=== PATIENT | female | born 1995 | race Caucasian/White ===

== ENCOUNTER 2018-01-19 01:32 | Emergency (ER) | payer MEDICAID ==
[~2018-01-19] VITALS: Ht 160 cm; Wt 104.3 kg
[~2018-01-19 01:32] MED LIST: PRENCAP61 PO
[2018-01-19 02:42] LABS: Urine Bacteria MOD /hpf (None Seen); Urine Blood Negative /uL (Negative); Urine Mucus FEW (None Seen); Urine Specific Gravity 1.018 (1.001-1.035); Urine WBC 16 /hpf (0 - 5)
[2018-01-19 02:46] LABS: Alcohol, Urine < 3.0 mg/dL (0-5); Amphetamine Screen, Urine NEGATIVE (NEGATIVE); Barbiturate Scree,Urine NEGATIVE (NEGATIVE); Benzodiazephine Screen, Urine NEGATIVE (NEGATIVE); Cannabinoid Screen, Urine NEGATIVE (NEGATIVE); Cocaine Screen, Urine NEGATIVE (NEGATIVE); Opiate Scree,Urine NEGATIVE (NEGATIVE); Phencyclidine Screen, Urine NEGATIVE (NEGATIVE)
[2018-01-19 03:08] LABS: Nucleated Red Blood Cells % 0.1 %; White Blood Cell 11.3 10^3/uL (4.4-10.8)
[2018-01-19 03:15] LABS: Basophils # (auto) 0.1 uL; Basophils % (auto) 0.6 % (0.0-2.0); Eosinophils # (auto) 0.4 uL; Eosinophils % (auto) 3.9 % (0.0-7.0); Hematocrit 45.3 % (36.0-46.0); Lymphocytes # (auto) 4.6 uL; Lymphocytes % (auto) 40.5 % (10.0-50.0); Mean Corpuscular Hemoglobin 27.6 pg (28.0-32.0); Mean Corpuscular Volume 83.6 fL (80.0-100.0); Monocytes # (auto) 0.6 uL; Monocytes % (auto) 5.7 % (0.0-12.0); Neutrophils # (auto) 5.6 uL; Neutrophils % (auto) 49.3 % (37.0-80.0); Platelet Count (auto) 288 10^3/uL (140-450); Red Blood Cells 5.43 10^6/uL (4.0-5.20)
[2018-01-19 03:31] LABS: Albumin 3.5 g/dL (3.4-5.0); BUN/Creatinine Ratio 17.1; Calcium 8.7 mg/dL (8.5-10.1)
[2018-01-19 03:34] LABS: Bilirubin, Total 0.4 mg/dL (0.2-1.0); Total Protein 7.2 g/dL (6.4-8.2)
[2018-01-19 04:36] VITALS: BP 111/69
== END 2018-01-19 09:15 | disposition home or self-care (01) ==
LOC: ER 01:32
DX: N39.0 Urinary tract infection, site not specified (principal); E66.01 Morbid (severe) obesity due to excess calories; Z68.41 Body mass index [BMI] 40.0-44.9, adult; Z90.49 Acquired absence of other specified parts of digestive tract; Z88.1 Allergy status to other antibiotic agents
CPT/HCPCS: 36415; 74176; 80053; 80307; 81001; 82150; 83690; 85025

== ENCOUNTER 2018-09-15 01:36 | Emergency (ER) | payer MEDICAID ==
[~2018-09-15] VITALS: Ht 167.6 cm; Wt 98.4 kg
[2018-09-15 02:45] VITALS: BP 127/56
[2018-09-15 03:28] LABS: Basophils # (auto) 0.1 uL; Basophils % (auto) 0.5 % (0.0-2.0); Eosinophils # (auto) 0.3 uL; Eosinophils % (auto) 2.7 % (0.0-7.0); Hematocrit 44.1 % (36.0-46.0); Hemoglobin 14.9 g/dL (12.2-16.2); Lymphocytes # (auto) 4.1 uL; Lymphocytes % (auto) 35.7 % (10.0-50.0); Mean Corpuscular Hemoglobin 28.9 pg (28.0-32.0); Mean Corpuscular Hgb Conc. 33.8 g/dL (32.0-36.0); Mean Corpuscular Volume 85.5 fL (80.0-100.0); Monocytes # (auto) 0.6 uL; Monocytes % (auto) 4.9 % (0.0-12.0); Neutrophils # (auto) 6.5 uL; Neutrophils % (auto) 56.2 % (37.0-80.0); Platelet Count (auto) 291 10^3/uL (140-450); Red Blood Cells 5.16 10^6/uL (4.0-5.20); Red Cell Distribution Width 14.9 % (11.8-14.3); White Blood Cell 11.6 10^3/uL (4.4-10.8)
[2018-09-15 03:44] LABS: Albumin 3.5 g/dL (3.4-5.0); BUN/Creatinine Ratio 15.5; Calcium 8.8 mg/dL (8.5-10.1); Potassium 3.8 mmol/L (3.5-5.1)
[2018-09-15 03:47] LABS: Bilirubin, Total 0.5 mg/dL (0.2-1.0); Total Protein 6.9 g/dL (6.4-8.2)
[2018-09-15 03:52] LABS: Urine Bacteria MANY /hpf (None Seen); Urine Blood Negative /uL (Negative); Urine Hyaline Cast FEW /lpf (0 - 2); Urine Mucus FEW (None Seen); Urine Specific Gravity 1.013 (1.001-1.035); Urine WBC 2 /hpf (0 - 5)
== END 2018-09-15 04:59 | disposition left against medical advice (07) ==
LOC: ER 01:36
DX: O26.891 Other specified pregnancy related conditions, first trimester (principal); R10.30 Lower abdominal pain, unspecified; Z3A.01 Less than 8 weeks gestation of pregnancy; Z53.21 Procedure and treatment not carried out due to patient leaving prior to being seen by health care provider
CPT/HCPCS: 36415; 80053; 81001; 84702; 85025

== ENCOUNTER 2019-02-15 19:47 | Observation (INO) | payer MEDICAID ==
[~2019-02-15] VITALS: Ht 162.6 cm; Wt 108.0 kg
[2019-02-15 21:03] LABS: Urine Bacteria NONE SEEN /hpf (None Seen); Urine Blood Negative /uL (Negative); Urine Mucus FEW (None Seen); Urine Specific Gravity 1.028 (1.001-1.035); Urine WBC 7 /hpf (0 - 5)
[2019-02-15 21:04] LABS: Alcohol, Urine < 3.0 mg/dL (0-5); Amphetamine Screen, Urine NEGATIVE (NEGATIVE); Barbiturate Scree,Urine NEGATIVE (NEGATIVE); Benzodiazephine Screen, Urine NEGATIVE (NEGATIVE); Cannabinoid Screen, Urine NEGATIVE (NEGATIVE); Cocaine Screen, Urine NEGATIVE (NEGATIVE); Opiate Scree,Urine NEGATIVE (NEGATIVE); Phencyclidine Screen, Urine NEGATIVE (NEGATIVE)
[2019-02-15] MEDS ORDERED: ACETAMINOPHEN 325 MG TAB PO ONE (21:15)
== END 2019-02-15 21:49 | disposition home or self-care (01) | DRG 566 ==
LOC: LDRP 19:47
PROVIDERS: ADMIT Obstetrics & Gynecology; ATTEND Obstetrics & Gynecology
DX: O26.892 Other specified pregnancy related conditions, second trimester (principal); F12.90 Cannabis use, unspecified, uncomplicated; R10.2 Pelvic and perineal pain; O26.852 Spotting complicating pregnancy, second trimester; O99.322 Drug use complicating pregnancy, second trimester; Z87.891 Personal history of nicotine dependence
CPT/HCPCS: 59025; 80307; 81001; 81002; G0378

== ENCOUNTER 2019-04-14 23:15 | Observation (INO) | payer MEDICAID ==
[~2019-04-14] VITALS: Ht 160 cm; Wt 108.9 kg
[2019-04-15] MEDS ORDERED: SODIUM CHLORIDE 0.9% 1,000 ML IV ONE (01:00)
[2019-04-15] MEDS ORDERED: cefTRIAXone 1GM/50ML D5W 50 ML IV ONE (01:00)
[2019-04-15 01:20] LABS: Urine Amorphous Crystal FEW /hpf (None Seen); Urine Bacteria MOD /hpf (None Seen); Urine Blood Negative /uL (Negative); Urine Mucus FEW (None Seen); Urine Specific Gravity 1.013 (1.001-1.035); Urine WBC 22 /hpf (0 - 5)
== END 2019-04-15 03:03 | disposition home or self-care (01) | DRG 566 ==
LOC: LDRP 23:15
PROVIDERS: ADMIT Specialist; ATTEND Specialist
DX: O23.43 Unspecified infection of urinary tract in pregnancy, third trimester (principal); O99.323 Drug use complicating pregnancy, third trimester; O62.9 Abnormality of forces of labor, unspecified; F12.90 Cannabis use, unspecified, uncomplicated; Z3A.35 35 weeks gestation of pregnancy; Z87.891 Personal history of nicotine dependence
CPT/HCPCS: 59025; 76815; 81001; 81002; 96365; G0378; J0696; J7030; 96361; 96366

== ENCOUNTER 2019-04-15 22:15 | Observation (INO) | payer MEDICAID ==
[2019-04-15] MEDS ORDERED: TERBUTALINE SULFATE 1 MG/ML 1ML VIAL SC SCH (22:45)
== END 2019-04-15 22:43 | disposition left against medical advice (07) | DRG 566 ==
LOC: LDRP 22:15
PROVIDERS: ADMIT Obstetrics & Gynecology; ATTEND Obstetrics & Gynecology
DX: O62.9 Abnormality of forces of labor, unspecified (principal); Z3A.35 35 weeks gestation of pregnancy; Z87.891 Personal history of nicotine dependence
CPT/HCPCS: G0378 ×2

== ENCOUNTER 2019-04-30 12:02 | Observation (INO) | payer MEDICAID ==
[~2019-04-30] VITALS: Ht 104.1 cm; Wt 112.0 kg
[2019-04-30] MEDS ORDERED: LACTATED RINGER'S 1,000 ML IV ONE (12:45)
[2019-04-30] MEDS ORDERED: ONDANSETRON HCL 4 MG/2 ML VIAL IV PRN (14:00)
== END 2019-04-30 16:05 | disposition home or self-care (01) | DRG 566 ==
LOC: LDRP 12:02
PROVIDERS: ADMIT Specialist; ATTEND Specialist
DX: O26.893 Other specified pregnancy related conditions, third trimester (principal); F12.90 Cannabis use, unspecified, uncomplicated; M25.551 Pain in right hip; R10.9 Unspecified abdominal pain; M25.552 Pain in left hip; O21.2 Late vomiting of pregnancy; N89.8 Other specified noninflammatory disorders of vagina; O99.323 Drug use complicating pregnancy, third trimester; Z87.891 Personal history of nicotine dependence; Z3A.37 37 weeks gestation of pregnancy
CPT/HCPCS: 59025; 81002; 84112; 96374; G0378; J2405; 96365; 96366

== ENCOUNTER 2019-05-08 22:00 | Inpatient (IN) | payer MEDICAID ==
[~2019-05-08] VITALS: Ht 160 cm; Wt 111.1 kg
[2019-05-08] MEDS ORDERED: LACT. RINGERS/OXYTOCIN 20UNITS 1,000 ML IV SCH (22:13)
[2019-05-08] MEDS ORDERED: PROMETHAZINE HCL 25 MG/ML 1ML IV PRN (22:15)
[2019-05-08] MEDS ORDERED: NALBUPHINE HCL 10 MG/1ml INJECTION IV PRN (22:15)
[2019-05-08] MEDS ORDERED: CARBOPROST TROMETHAMINE 250 MCG/1ML VIAL IM PRN (22:15)
[2019-05-08] MEDS ORDERED: DERMOPLAST 60ML BOTTLE TOP PRN (22:15)
[2019-05-08] MEDS ORDERED: PHISODERM TOP SOLN 240ML BTL TOP PRN (22:15)
[2019-05-08] MEDS ORDERED: WITCH HAZEL-GLYCERIN PAD TOP PRN (22:15)
[2019-05-08] MEDS ORDERED: LIDOCAINE 2%HCL (LOCAL ANESTH.) INJ 20ML MDV ID PRN (22:15)
[2019-05-08] MEDS ORDERED: METHYLERGONOVINE MALEATE 0.2 MG/ML AMP IM PRN (22:15)
[2019-05-08 22:49] LABS: Basophils # (auto) 0 uL; Basophils % (auto) 0.3 % (0.0-2.0); Hematocrit 34.2 % (36.0-46.0); Mean Corpuscular Hemoglobin 26.3 pg (28.0-32.0); Monocytes # (auto) 0.5 uL; Nucleated Red Blood Cells % 0.1 %
[2019-05-08 22:51] LABS: Eosinophils # (auto) 0.1 uL; Eosinophils % (auto) 0.7 % (0.0-7.0); Hemoglobin 11.3 g/dL (12.2-16.2); Lymphocytes # (auto) 2.3 uL; Lymphocytes % (auto) 30.2 % (10.0-50.0); Mean Corpuscular Volume 79.9 fL (80.0-100.0); Monocytes % (auto) 6.3 % (0.0-12.0); Neutrophils # (auto) 4.8 uL; Neutrophils % (auto) 62.5 % (37.0-80.0); Platelet Count (auto) 303 10^3/uL (140-450); Red Blood Cells 4.29 10^6/uL (4.0-5.20); Red Cell Distribution Width 14.5 % (11.8-14.3); White Blood Cell 7.7 10^3/uL (4.4-10.8)
[2019-05-08 23:06] LABS: INR < 0.93 (0.9-1.15); Partial Thromboplastin Time 27.3 sec (23.64-32.05)
[2019-05-08 23:08] LABS: Albumin 2.5 g/dL (3.4-5.0); BUN/Creatinine Ratio 13.1; Calcium 8.7 mg/dL (8.5-10.1); Potassium 3.4 mmol/L (3.5-5.1)
[2019-05-08] MEDS: LACTATED RINGER'S 1,000 ML IV SCH (23:11)
[2019-05-08 23:18] LABS: Bilirubin, Total 0.5 mg/dL (0.2-1.0); Total Protein 6.5 g/dL (6.4-8.2)
[2019-05-08 23:47] LABS: Urine Blood Negative /uL (Negative); Urine Hyaline Cast FEW /lpf (0 - 2); Urine Mucus FEW (None Seen); Urine Specific Gravity 1.029 (1.001-1.035); Urine WBC 38 /hpf (0 - 5)
[2019-05-08 23:48] LABS: Urine Bacteria MODERATE /hpf (None Seen)
[2019-05-09 00:01] LABS: Alcohol, Urine < 3.0 mg/dL (0-5); Amphetamine Screen, Urine NEGATIVE (NEGATIVE); Benzodiazephine Screen, Urine NEGATIVE (NEGATIVE); Cannabinoid Screen, Urine NEGATIVE (NEGATIVE); Cocaine Screen, Urine NEGATIVE (NEGATIVE); Opiate Scree,Urine NEGATIVE (NEGATIVE); Phencyclidine Screen, Urine NEGATIVE (NEGATIVE)
[2019-05-09 00:03] LABS: Barbiturate Scree,Urine NEGATIVE (NEGATIVE)
[2019-05-09] MEDS: LACTATED RINGER'S 1,000 ML IV SCH ×2 (05:45→11:21)
[2019-05-09] MEDS ORDERED: LACTATED RINGER'S 1,000 ML IV ONE (11:10)
[2019-05-09] MEDS ORDERED: fentaNYL CITRATE 100 MCG/2 ML VL IV ONE (11:15)
[2019-05-09] MEDS ORDERED: NALOXONE HCL 0.4 MG/ML VIAL IV ONE (11:15)
[2019-05-09] MEDS ORDERED: LIDOCAINE HCL 2 %PF INJ 10ML AMP IJ ONE (11:15)
[2019-05-09] MEDS ORDERED: ePHEDrine SULFATE 50 MG/ML AMP IV ONE (11:15)
[2019-05-09] MEDS ORDERED: fentaNYL W ROPIVACAINE 150 ML EPI SCH (11:15)
--- NOTE | 2019-05-09 15:47 | NUR ---
Ambulation: Epidural catheter removed. Blue tip visualized and intact. Bandaid applied to site. Patient OOB with standby assistance by RN. Patient ambulated to bathroom with steady gait. Patient able to void without difficulty. [facility]icare teaching provided with returned demonstration by patient. Clean gown provided and bed linen changed. Patient ambulated back to bed with steady gait and no distress noted.
[2019-05-09] MEDS ORDERED: ACETAMINOPHEN 325 MG TAB PO PRN (16:15)
[2019-05-09 19:00] VITALS: BP 110/62
[2019-05-09] MEDS: IBUPROFEN 600 MG TAB PO PRN ×2 (19:44→23:52)
[2019-05-09] MEDS ORDERED: TETANUS-DIPTH-ACEL PERTUSSIS 0.5ML SYRG IM ONE (21:30)
[2019-05-09] MEDS ORDERED: INFLUENZA QUAD 2019-2020 0.5ml SYRG IM ONE (21:30)
[2019-05-09 23:00] VITALS: BP 114/67
[2019-05-10 03:15] VITALS: BP 125/61
[2019-05-10 07:07] LABS: RPR Non Reactive (Non Reactive)
[2019-05-10 07:30] VITALS: BP 88/51
--- NOTE | 2019-05-10 08:30 | NUR ---
Teaching: Reviewed information in [facility] booklet with patient. Discussed benefits of and risks associated with not . Discussed different positions, proper latch, feeding cues, and baby-led . Provided information of medication side effects related to . All questions and concerns addressed at this time. Patient verbalized understanding of information.
[2019-05-10] MEDS: IBUPROFEN 600 MG TAB PO PRN (11:43)
--- NOTE | 2019-05-10 11:45 | NUR ---
IV removal IV DC'd with clean technique, catheter fully intact. Pressure dressing applied to site. Patient tolerated well.
[2019-05-10 12:02] VITALS: BP 120/68
--- NOTE | 2019-05-10 14:40 | NUR ---
Discharge: Discharge instructions given as ordered. Pt encouraged to follow up with [facility] as instructed. All questions and concerns addressed. Patient verbalized understanding. Medication reconciliation completed and copy given to patient. All required/requested vaccines given and copies of vaccinations given to patient. Patient encouraged to prepare to depart unit.
--- NOTE | 2019-05-10 15:20 | NUR ---
Discharge: Patient ambulated to vehicle with all personal belongings, accompanied by staff and family member. No distress noted at time of departure, no adverse changes in status since initial assessment.
== END 2019-05-10 15:20 | disposition home or self-care (01) | DRG 560 ==
LOC: LDRP 22:00 → OBSVTOIN 22:00
PROVIDERS: ADMIT Obstetrics & Gynecology; ATTEND Obstetrics & Gynecology
PROC: 10E0XZZ Delivery of Products of Conception, External Approach (ICD-10-PCS; principal; 2019-05-09)
PROC: 10907ZC Drainage of Amniotic Fluid, Therapeutic from Products of Conception, Via Natural or Artificial Opening (ICD-10-PCS; 2019-05-09)
PROC: 3E0R3BZ Introduction of Anesthetic Agent into Spinal Canal, Percutaneous Approach (ICD-10-PCS; 2019-05-09)
PROC: 00HU33Z Insertion of Infusion Device into Spinal Canal, Percutaneous Approach (ICD-10-PCS; 2019-05-09)
PROC: 3E033VJ Introduction of Other Hormone into Peripheral Vein, Percutaneous Approach (ICD-10-PCS; 2019-05-09)
PROC: 10H07YZ Insertion of Other Device into Products of Conception, Via Natural or Artificial Opening (ICD-10-PCS; 2019-05-09)
DX: O69.81X0 Labor and delivery complicated by cord around neck, without compression, not applicable or unspecified (principal); O72.1 Other immediate postpartum hemorrhage; J45.909 Unspecified asthma, uncomplicated; O62.3 Precipitate labor; O99.52 Diseases of the respiratory system complicating childbirth; Z3A.39 39 weeks gestation of pregnancy; Z37.0 Single live birth; Z88.1 Allergy status to other antibiotic agents; O99.324 Drug use complicating childbirth
CPT/HCPCS: 36415; 51702; 59025; 59409; 62282; 80053; 80307; 81001; 84112; 85025; 85610; 85730; 86592; 86850; 86900; 86901; 90715; 94760; 96366; 96372; G0378; J2590; J3010

== ENCOUNTER → 2019-10-01 | Emergency (ER) | payer MEDICAID ==
[~2019-10-01] VITALS: Ht 160 cm; Wt 99.8 kg
[2019-10-01 03:04] VITALS: BP 104/72
[2019-10-01 03:50] LABS: Urine Bacteria FEW /hpf (None Seen); Urine Blood Negative /uL (Negative); Urine Specific Gravity 1.023 (1.001-1.035); Urine WBC 2 /hpf (0 - 5)
[2019-10-01 03:52] LABS: Urine Pregnacy Test Negative (Negative)
[2019-10-01 03:56] LABS: Amphetamine Screen, Urine NEGATIVE (NEGATIVE); Barbiturate Scree,Urine NEGATIVE (NEGATIVE); Benzodiazephine Screen, Urine NEGATIVE (NEGATIVE); Cocaine Screen, Urine NEGATIVE (NEGATIVE); Opiate Scree,Urine NEGATIVE (NEGATIVE); Phencyclidine Screen, Urine NEGATIVE (NEGATIVE)
[2019-10-01 04:00] LABS: Alcohol, Urine < 3.0 mg/dL (0-5); Cannabinoid Screen, Urine POSITIVE (NEGATIVE)
[2019-10-01 04:09] LABS: Basophils # (auto) 0 10 ^3/uL (0-0.2); Basophils % (auto) 0.4 % (0.0-2.0); Eosinophils # (auto) 0.4 10 ^3/uL (0-0.8); Eosinophils % (auto) 3.9 % (0.0-7.0); Hematocrit 41.6 % (36.0-46.0); Hemoglobin 13.3 g/dL (12.2-16.2); Lymphocytes # (auto) 3.3 10 ^3/uL (0.4-5.4); Lymphocytes % (auto) 35.8 % (10.0-50.0); Mean Corpuscular Hemoglobin 25.2 pg (28.0-32.0); Mean Corpuscular Hgb Conc. 31.9 g/dL (32.0-36.0); Monocytes # (auto) 0.4 10 ^3/uL (0-1.3); Monocytes % (auto) 4.3 % (0.0-12.0); Neutrophils # (auto) 5.1 10 ^3/uL (1.6-8.6); Neutrophils % (auto) 55.6 % (37.0-80.0); Nucleated Red Blood Cells % 0.1 %; Platelet Count (auto) 335 10^3/uL (140-450); Red Blood Cells 5.27 10^6/uL (4.0-5.20); Red Cell Distribution Width 16.5 % (11.8-14.3); White Blood Cell 9.2 10^3/uL (4.4-10.8)
[2019-10-01 04:28] LABS: Albumin 3.7 g/dL (3.4-5.0); Calcium 9.1 mg/dL (8.5-10.1); Potassium 3.8 mmol/L (3.5-5.1)
[2019-10-01 04:30] LABS: BUN/Creatinine Ratio 16.7; Bilirubin, Total 0.3 mg/dL (0.2-1.0); Total Protein 7.8 g/dL (6.4-8.2)
== END | disposition home or self-care (01) ==
LOC: ER 02:47
DX: B34.9 Viral infection, unspecified (principal); J45.909 Unspecified asthma, uncomplicated; Z88.1 Allergy status to other antibiotic agents
CPT/HCPCS: 36415; 80053; 80307; 81001; 81025; 85025

== ENCOUNTER 2020-01-11 19:22 | Inpatient (IN) | payer MEDICAID ==
[~2020-01-11] VITALS: Ht 160 cm; Wt 103.9 kg
[2020-01-11 20:37] LABS: Basophils # (auto) 0 10 ^3/uL (0-0.2); Basophils % (auto) 0.4 % (0.0-2.0); Eosinophils # (auto) 0.3 10 ^3/uL (0-0.8); Mean Corpuscular Hemoglobin 25.7 pg (28.0-32.0); Monocytes # (auto) 0.6 10 ^3/uL (0-1.3); Nucleated Red Blood Cells % 0.1 %; White Blood Cell 10.1 10^3/uL (4.4-10.8)
[2020-01-11 20:39] LABS: Hematocrit 40.8 % (36.0-46.0); Hemoglobin 13.4 g/dL (12.2-16.2); Lymphocytes # (auto) 2.1 10 ^3/uL (0.4-5.4); Lymphocytes % (auto) 20.8 % (10.0-50.0); Mean Corpuscular Hgb Conc. 32.9 g/dL (32.0-36.0); Mean Corpuscular Volume 77.9 fL (80.0-100.0); Neutrophils # (auto) 7.1 10 ^3/uL (1.6-8.6); Neutrophils % (auto) 69.8 % (37.0-80.0); Platelet Count (auto) 271 10^3/uL (140-450); Red Blood Cells 5.24 10^6/uL (4.0-5.20); Red Cell Distribution Width 14.8 % (11.8-14.3)
[2020-01-11 20:51] LABS: Albumin 3.8 g/dL (3.4-5.0); BUN/Creatinine Ratio 11.4; Calcium 8.7 mg/dL (8.5-10.1); Potassium 3.7 mmol/L (3.5-5.1)
[2020-01-11 20:53] LABS: INR 1.06 (0.9-1.15); Total Protein 7.5 g/dL (6.4-8.2)
[2020-01-11 22:46] LABS: Urine WBC None Seen /hpf (0 - 5)
[2020-01-11 22:54] LABS: Urine Bacteria NONE SEEN /hpf (None Seen); Urine Blood Negative /uL (Negative)
[2020-01-12] MEDS ORDERED: IPRATROPIUM BROM 0.5 MG/2.5ML INH SOL NEB PRN (01:15)
[2020-01-12] MEDS ORDERED: ACETAMINOPHEN 500 MG TAB PO PRN (01:15)
[2020-01-12] MEDS ORDERED: ALBUTEROL SULF 2.5 MG/0.5ML(0.5%) NEB SOLN NEB PRN (01:15)
[2020-01-12] MEDS ORDERED: ALBUTEROL SULF HFA 90MCG INH 200DOSE IN SCH (06:00)
[2020-01-12 08:30] VITALS: BP 114/74
[2020-01-12] MEDS ORDERED: ASCORBIC ACID 1,000 MG TAB PO SCH (10:00)
[2020-01-12] MEDS ORDERED: CHOLECALCIFEROL (VITD3) 1,000IU=25mCg TAB PO SCH (10:00)
[2020-01-12] MEDS ORDERED: ZINC SULFATE 220mg CAP or TAB PO SCH (10:00)
[2020-01-12] MEDS ORDERED: methylPREDNISolone SOD SUCC 125 MG/2 ML VL IV SCH (10:00)
[2020-01-12] MEDS ORDERED: DOXYCYCLINE 100 MG TAB/CAP PO SCH (10:00)
[2020-01-12] MEDS ORDERED: ENOXAPARIN SOD 40 MG/0.4 ML SYRINGE SC SCH (10:00)
[2020-01-12 11:26] VITALS: BP 100/45
[2020-01-12] MEDS ORDERED: AZITHROMYCIN 250 MG TAB PO ONE (12:45)
[2020-01-12] MEDS ORDERED: cefTRIAXone 1GM/50ML D5W 50 ML IV ONE (12:45)
[2020-01-12] MEDS ORDERED: cefTRIAXone 1GM/50ML D5W 50 ML IV SCH (21:00)
[2020-01-13] MEDS ORDERED: AZITHROMYCIN 250 MG TAB PO SCH (10:00)
== END 2020-01-12 13:02 | disposition left against medical advice (07) | DRG 720 ==
LOC: ER 19:22 → TELE 19:23
PROVIDERS: ADMIT Hospitalist; ATTEND Internal Medicine Nephrology
DX: A41.9 Sepsis, unspecified organism (principal); F17.210 Nicotine dependence, cigarettes, uncomplicated; R10.11 Right upper quadrant pain; J45.909 Unspecified asthma, uncomplicated; Z80.3 Family history of malignant neoplasm of breast; Z82.49 Family history of ischemic heart disease and other diseases of the circulatory system; Z53.29 Procedure and treatment not carried out because of patient's decision for other reasons; Z20.828 Contact with and (suspected) exposure to other viral communicable diseases
CPT/HCPCS: 36415; 71045; 80053; 81001; 82728; 83605; 83615; 83735; 85025; 85379; 85610; 87040; 87070; 87804; 87880; 96372; 96374; G0378

== ENCOUNTER 2020-06-06 15:58 | Emergency (ER) | payer MEDICAID ==
[~2020-06-06] VITALS: Ht 160 cm; Wt 108.9 kg
[2020-06-06 16:13] VITALS: BP 126/76
== END 2020-06-06 17:52 | disposition home or self-care (01) ==
LOC: ER 15:58
DX: R05 Cough (principal); J02.9 Acute pharyngitis, unspecified; R51.9 Headache, unspecified; Z20.828 Contact with and (suspected) exposure to other viral communicable diseases
CPT/HCPCS: 36415; 87426; 99283; C9803; U0003

== ENCOUNTER 2020-10-06 06:04 | Observation (INO) | payer MEDICAID ==
[~2020-10-06] VITALS: Ht 160 cm; Wt 108.9 kg
[2020-10-06 07:00] LABS: Alcohol, Urine < 3.0 mg/dL (0-10); Amphetamine Screen, Urine NEGATIVE (NEGATIVE); Barbiturate Scree,Urine NEGATIVE (NEGATIVE); Benzodiazephine Screen, Urine NEGATIVE (NEGATIVE); Cannabinoid Screen, Urine NEGATIVE (NEGATIVE); Cocaine Screen, Urine NEGATIVE (NEGATIVE); Opiate Scree,Urine NEGATIVE (NEGATIVE); Phencyclidine Screen, Urine NEGATIVE (NEGATIVE)
[2020-10-06 07:13] LABS: Urine Bacteria FEW /hpf (None Seen); Urine Blood 3+ /uL (Negative); Urine Budding Yeast MODERATE /hpf (None Seen); Urine Specific Gravity 1.026 (1.001-1.035); Urine WBC 45 /hpf (0 - 5)
[2020-10-06] MEDS ORDERED: LACTATED RINGER'S 2,000 ML IV ONE (07:45)
[2020-10-06] MEDS ORDERED: BUTORPHANOL TARTRATE 2 MG/1 ML VIAL IV ONE (07:45)
[2020-10-06] MEDS ORDERED: ONDANSETRON HCL 4 MG/2 ML VIAL IV ONE (07:45)
== END 2020-10-06 09:45 | disposition home or self-care (01) ==
LOC: LDRP 06:04
PROVIDERS: ADMIT Obstetrics & Gynecology; ATTEND Obstetrics & Gynecology
DX: O99.891 Other specified diseases and conditions complicating pregnancy (principal); M54.9 Dorsalgia, unspecified; Z3A.24 24 weeks gestation of pregnancy; Z79.899 Other long term (current) drug therapy
CPT/HCPCS: 59025; 76775; 80307; 81001; 81002; 96361; 96374; 96375; G0378; J0595; J2405; 96376

== ENCOUNTER 2020-12-15 17:40 | Observation (INO) | payer MEDICAID ==
[~2020-12-15] VITALS: Ht 160 cm; Wt 116.6 kg
[2020-12-15] MEDS ORDERED: BECL40AE11 IN (19:20)
[2020-12-15] MEDS ORDERED: FERR-7 PO (19:20)
[2020-12-15] MEDS ORDERED: ALBU2TAB4 PO (19:20)
[2020-12-15 20:15] LABS: Urine Bacteria MOD /hpf (None Seen); Urine Blood TRACE /uL (Negative); Urine Mucus FEW (None Seen); Urine Specific Gravity 1.015 (1.001-1.035); Urine WBC 3 /hpf (0 - 5)
[2020-12-15] MEDS ORDERED: LACTATED RINGER'S 1,000 ML IV ONE (20:30)
[2020-12-15] MEDS ORDERED: BETAMETHASONE ACET (6MG/ML) 5ML VIAL IM SCH (20:30)
[2020-12-15] MEDS: TERBUTALINE SULFATE 1 MG/ML 1ML VIAL SC SCH ×2 (20:47→21:22)
[2020-12-15 21:26] LABS: Alcohol, Urine < 3.0 mg/dL (0-10); Amphetamine Screen, Urine NEGATIVE (NEGATIVE); Barbiturate Scree,Urine NEGATIVE (NEGATIVE); Benzodiazephine Screen, Urine NEGATIVE (NEGATIVE); Cannabinoid Screen, Urine NEGATIVE (NEGATIVE); Opiate Scree,Urine NEGATIVE (NEGATIVE); Phencyclidine Screen, Urine NEGATIVE (NEGATIVE)
[2020-12-15 21:30] LABS: Cocaine Screen, Urine NEGATIVE (NEGATIVE)
== END 2020-12-15 23:09 | disposition home or self-care (01) ==
LOC: LDRP 17:40
PROVIDERS: ADMIT Specialist; ATTEND Specialist
DX: O60.03 Preterm labor without delivery, third trimester (principal); Z3A.34 34 weeks gestation of pregnancy; Z79.899 Other long term (current) drug therapy
CPT/HCPCS: 59025; 80307; 81001; 81002; 94760; 96360; 96361; 96372; G0378; J0702; J3105

== ENCOUNTER 2020-12-16 20:32 | Observation (INO) | payer MEDICAID ==
[~2020-12-16] VITALS: Ht 160 cm; Wt 116.6 kg
[~2020-12-16 20:32] MED LIST changes: +ALBU2TAB4 PO; +BECL40AE11 IN; +FERR-7 PO
[2020-12-16] MEDS ORDERED: BETAMETHASONE ACET (6MG/ML) 5ML VIAL IM SCH (21:00)
== END 2020-12-16 21:48 | disposition home or self-care (01) ==
LOC: LDRP 20:32
PROVIDERS: ADMIT Obstetrics & Gynecology; ATTEND Obstetrics & Gynecology
DX: O62.9 Abnormality of forces of labor, unspecified (principal); Z3A.35 35 weeks gestation of pregnancy
CPT/HCPCS: 59025; 81002; 96372; G0378

== ENCOUNTER 2020-12-30 10:53 | Observation (INO) | payer MEDICAID ==
[~2020-12-30] VITALS: Ht 160 cm; Wt 113.4 kg
== END 2020-12-30 12:30 | disposition home or self-care (01) ==
LOC: LDRP 10:53
PROVIDERS: ADMIT Obstetrics & Gynecology; ATTEND Obstetrics & Gynecology
DX: O62.9 Abnormality of forces of labor, unspecified (principal); Z3A.37 37 weeks gestation of pregnancy
CPT/HCPCS: 59025; 81002; 94760; G0378

== ENCOUNTER 2022-03-19 03:21 | Emergency (ER) | payer MEDICAID ==
[~2022-03-19] VITALS: Ht 160 cm; Wt 115.2 kg
[2022-03-19 07:30] VITALS: BP 114/73
[2022-03-19] MEDS ORDERED: PROMETHAZINE HCL 25 MG/ML 1ML IM ONE (07:45)
[2022-03-19] MEDS ORDERED: KETOROLAC TROMETH 30 MG/ML 1ML VIAL IM ONE (07:45)
[2022-03-19] MEDS ORDERED: CYCL-837 PO (08:47)
== END 2022-03-19 08:58 | disposition home or self-care (01) ==
LOC: ER 03:21
DX: G44.209 Tension-type headache, unspecified, not intractable (principal); J45.909 Unspecified asthma, uncomplicated; F17.210 Nicotine dependence, cigarettes, uncomplicated; Z90.49 Acquired absence of other specified parts of digestive tract; Z79.899 Other long term (current) drug therapy; Z88.1 Allergy status to other antibiotic agents
CPT/HCPCS: 70450; 96372; 99284; J1885; J2550

== ENCOUNTER 2022-09-29 20:17 | Emergency (ER) | payer MEDICAID ==
[~2022-09-29 20:17] MED LIST changes: +CYCL-837 PO
== END 2022-09-29 23:06 | disposition left against medical advice (07) ==
LOC: ER 20:17
DX: R10.9 Unspecified abdominal pain (principal); R11.2 Nausea with vomiting, unspecified; Z53.21 Procedure and treatment not carried out due to patient leaving prior to being seen by health care provider

== ENCOUNTER → 2023-11-28 | Outpatient (CLI) | payer MEDICAID ==
[~2023-11-28] MED LIST changes: +ALBU2TAB11 PO; -ALBU2TAB4 PO
[2023-11-28 10:41] LABS: Basophils # (auto) 0 10 ^3/uL (0-0.2); Basophils % (auto) 0.3 % (0.0-2.0); Eosinophils # (auto) 0.1 10 ^3/uL (0-0.8); Eosinophils % (auto) 0.9 % (0.0-7.0); Hemoglobin 14.5 g/dL (12.2-16.2); Lymphocytes # (auto) 2.6 10 ^3/uL (0.4-5.4); Lymphocytes % (auto) 30.4 % (10.0-50.0); Mean Corpuscular Hemoglobin 27.1 pg (28.0-32.0); Mean Corpuscular Volume 82.3 fL (80.0-100.0); Monocytes # (auto) 0.3 10 ^3/uL (0-1.3); Neutrophils # (auto) 5.4 10 ^3/uL (1.6-8.6); Neutrophils % (auto) 64.4 % (37.0-80.0); Red Blood Cells 5.35 10^6/uL (4.0-5.20); Red Cell Distribution Width 15.5 % (11.8-14.3); White Blood Cell 8.5 10^3/uL (4.4-10.8)
[2023-11-28 12:18] LABS: Amphetamine Screen, Urine Neg (NEGATIVE)
[2023-11-28 12:21] LABS: Barbiturate Scree,Urine Neg (NEGATIVE)
[2023-11-28 12:22] LABS: Benzodiazephine Screen, Urine Neg (NEGATIVE); Cannabinoid Screen, Urine Pos (NEGATIVE); Cocaine Screen, Urine Neg (NEGATIVE); Opiate Scree,Urine Neg (NEGATIVE); Phencyclidine Screen, Urine Neg (NEGATIVE)
[2023-11-29 07:07] LABS: RPR Non Reactive (Non Reactive)
[2023-11-30 03:06] LABS: Chlamydia Trachomatis, NAA Negative (Negative); Neisseria gonorrhoeae, NAA Negative (Negative)
[2023-11-30 22:06] LABS: QuantiFERON-TB Gold Plus Positive (Negative)
== END | disposition home or self-care (01) ==
LOC: LAB 10:15
PROVIDERS: ATTEND Obstetrics & Gynecology
DX: Z34.80 Encounter for supervision of other normal pregnancy, unspecified trimester (principal)
CPT/HCPCS: 36415; 80307; 83036; 84144; 84702; 85025; 86592; 86703; 86762; 86850; 86900; 86901; 87086; 87340

== ENCOUNTER 2023-12-23 16:20 | Emergency (ER) | payer MEDICAID ==
[~2023-12-23] VITALS: Ht 160 cm; Wt 109.0 kg
[2023-12-23 16:20] VITALS: BP 119/84; PULSE 106; RESP 18; O2SAT 97
[2023-12-23 18:06] LABS: Urine Bacteria FEW /hpf (None Seen); Urine Blood 1+ /uL (Negative); Urine Clarity Clear (Clear); Urine Color Light-Yellow (Yellow); Urine Mucus FEW (None Seen); Urine Protein, UAD TRACE (Negative); Urine Specific Gravity 1.015 (1.001-1.035); Urine Urobilinogen Normal (Negative); Urine WBC 1 /hpf (0 - 5)
== END 2023-12-23 20:38 | disposition home or self-care (01) ==
LOC: EDBD 16:20 → ER 16:20
DX: O9A.212 Injury, poisoning and certain other consequences of external causes complicating pregnancy, second trimester (principal); R10.32 Left lower quadrant pain; M54.2 Cervicalgia; J45.909 Unspecified asthma, uncomplicated; K80.20 Calculus of gallbladder without cholecystitis without obstruction; F17.210 Nicotine dependence, cigarettes, uncomplicated; F15.90 Other stimulant use, unspecified, uncomplicated; Z3A.15 15 weeks gestation of pregnancy; Z88.8 Allergy status to other drugs, medicaments and biological substances; Z79.899 Other long term (current) drug therapy; V49.49XA Driver injured in collision with other motor vehicles in traffic accident, initial encounter; Y93.I9 Activity, other involving external motion; Y92.89 Other specified places as the place of occurrence of the external cause; Y99.8 Other external cause status
CPT/HCPCS: 76805; 76817; 81001

== ENCOUNTER → 2024-04-09 | Outpatient (CLI) | payer MEDICAID ==
[2024-04-09 12:52] LABS: Basophils # (auto) 0 10 ^3/uL (0-0.2); Basophils % (auto) 0.3 % (0.0-2.0); Eosinophils # (auto) 0 10 ^3/uL (0-0.8); Eosinophils % (auto) 0.4 % (0.0-7.0); Hemoglobin 12.3 g/dL (12.2-16.2); Lymphocytes % (auto) 32.5 % (10.0-50.0); Mean Corpuscular Hemoglobin 28.2 pg (28.0-32.0); Mean Corpuscular Hgb Conc. 34.2 g/dL (32.0-36.0); Mean Corpuscular Volume 82.5 fL (80.0-100.0); Monocytes # (auto) 0.6 10 ^3/uL (0-1.3); Monocytes % (auto) 6.8 % (0.0-12.0); Neutrophils # (auto) 5.5 10 ^3/uL (1.6-8.6); Nucleated Red Blood Cells % 0.1 %; Platelet Count (auto) 359 10^3/uL (140-450); Red Blood Cells 4.36 10^6/uL (4.0-5.20); White Blood Cell 9.1 10^3/uL (4.4-10.8)
== END | disposition home or self-care (01) ==
LOC: LAB 10:00
PROVIDERS: ATTEND Obstetrics & Gynecology
DX: Z34.80 Encounter for supervision of other normal pregnancy, unspecified trimester (principal)
CPT/HCPCS: 36415; 82951; 83036; 85025; 86850; 86900; 86901

== ENCOUNTER 2024-05-02 11:50 | Observation (INO) | payer MEDICAID | END 2024-05-02 13:25 | disposition home or self-care (01) | LOC: UNDOADMOB 11:50 → LDRP 11:50 → UNDODISOB 13:25 | PROVIDERS: ADMIT Obstetrics & Gynecology; ATTEND Obstetrics & Gynecology | DX: O24.419 Gestational diabetes mellitus in pregnancy, unspecified control (principal); O60.03 Preterm labor without delivery, third trimester; Z3A.32 32 weeks gestation of pregnancy; Z88.1 Allergy status to other antibiotic agents; Z87.891 Personal history of nicotine dependence | CPT/HCPCS: 59025; 76818; 81002; 82948; 82962; 94760; G0378 ==

== ENCOUNTER 2024-05-09 13:07 | Observation (INO) | payer MEDICAID | END 2024-05-09 14:43 | disposition home or self-care (01) | LOC: UNDOADMOB 13:07 → LDRP 13:07 → UNDODISOB 14:43 | PROVIDERS: ADMIT Obstetrics & Gynecology; ATTEND Obstetrics & Gynecology | DX: O24.419 Gestational diabetes mellitus in pregnancy, unspecified control (principal); Z3A.33 33 weeks gestation of pregnancy; Z88.1 Allergy status to other antibiotic agents; Z87.891 Personal history of nicotine dependence | CPT/HCPCS: 59025; 76818; 81002; 82948; 82962; 94760; G0378 ==

== ENCOUNTER 2024-05-13 13:39 | Observation (INO) | payer MEDICAID ==
[~2024-05-13] VITALS: Ht 165.1 cm; Wt 115.2 kg
[2024-05-13 21:03] LABS: Basophils # (auto) 0 10 ^3/uL (0-0.2); Basophils % (auto) 0.3 % (0.0-2.0); Eosinophils # (auto) 0.1 10 ^3/uL (0-0.8); Hemoglobin 11.6 g/dL (12.2-16.2); Red Blood Cells 4.39 10^6/uL (4.0-5.20)
[2024-05-13 21:05] LABS: Eosinophils % (auto) 0.7 % (0.0-7.0); Hematocrit 35.3 % (36.0-46.0); Lymphocytes % (auto) 25.9 % (10.0-50.0); Mean Corpuscular Hemoglobin 26.5 pg (28.0-32.0); Mean Corpuscular Hgb Conc. 32.9 g/dL (32.0-36.0); Mean Corpuscular Volume 80.5 fL (80.0-100.0); Monocytes # (auto) 0.5 10 ^3/uL (0-1.3); Monocytes % (auto) 5.9 % (0.0-12.0); Neutrophils # (auto) 5.2 10 ^3/uL (1.6-8.6); Neutrophils % (auto) 67.2 % (37.0-80.0); Nucleated Red Blood Cells % 0.3 %; Platelet Count (auto) 329 10^3/uL (140-450); Red Cell Distribution Width 14.6 % (11.8-14.3); White Blood Cell 7.7 10^3/uL (4.4-10.8)
[2024-05-13 21:18] LABS: Urine Amorphous Crystal FEW /hpf (None Seen); Urine Bacteria FEW /hpf (None Seen); Urine Blood 2+ /uL (Negative); Urine Clarity Turbid (Clear); Urine Color Yellow (Yellow); Urine Mucus FEW (None Seen); Urine Protein, UAD TRACE (Negative); Urine Specific Gravity 1.022 (1.001-1.035); Urine Urobilinogen Normal (Negative); Urine WBC 2 /hpf (0 - 5)
[2024-05-13 21:22] LABS: Albumin 3.8 g/dL (3.2-4.8); Alkaline Phosphatase 173 U/L (46-116); Anion Gap 5 (5-15); Aspartate Aminotransferase < 8 U/L (13-40); Bilirubin, Total 1.1 mg/dL (0.2-1.0); Calcium 9.4 mg/dL (8.7-10.4); Carbon Dioxide 24 mmol/L (20-31); Chloride 109 mmol/L (98-107); Glucose 83 mg/dL (74-106); Potassium 3.6 mmol/L (3.5-5.1); Sodium 138 mmol/L (136-145); Uric Acid 5.6 mg/dL (3.1-7.8)
[2024-05-13 21:23] LABS: Alanine Aminotransferase < 9 U/L (7-40); BUN/Creatinine Ratio 9.3 (10.0-20.0); Blood Urea Nitrogen < 5 mg/dL (9-23); Total Protein 6.4 g/dL (5.7-8.2)
[2024-05-13 21:27] LABS: Protein, Urine 33.3 mg/dL (1-14)
[2024-05-13 21:29] LABS: Creatinine, Urine 157.36 mg/dL (30.0-125.0); Urine Protein/Creatinine Ratio 0.21
[2024-05-13 21:31] LABS: Partial Thromboplastin Time 26.5 SEC (24.5-34.5); Prothrombin Time 10.6 sec (9.3-11.8)
== END 2024-05-13 22:02 | disposition home or self-care (01) ==
LOC: LDRP 18:55
PROVIDERS: ADMIT Obstetrics & Gynecology; ATTEND Obstetrics & Gynecology
DX: O24.419 Gestational diabetes mellitus in pregnancy, unspecified control (principal); O26.893 Other specified pregnancy related conditions, third trimester; R51.9 Headache, unspecified; Z3A.35 35 weeks gestation of pregnancy; Z79.899 Other long term (current) drug therapy; Z98.890 Other specified postprocedural states
CPT/HCPCS: 36415; 59025; 76818; 80053; 81001; 81002; 82570; 82948; 82962; 84156; 84550; 85025; 85610; 85730; 94760; G0378

== ENCOUNTER 2024-05-16 08:39 | Observation (INO) | payer MEDICAID | END 2024-05-16 12:22 | disposition home or self-care (01) | LOC: LDRP 10:09 | PROVIDERS: ADMIT Obstetrics & Gynecology; ATTEND Obstetrics & Gynecology | DX: O24.419 Gestational diabetes mellitus in pregnancy, unspecified control (principal); Z3A.35 35 weeks gestation of pregnancy; Z88.5 Allergy status to narcotic agent; Z87.891 Personal history of nicotine dependence | CPT/HCPCS: 59025; 76818; 81002; 94760; G0378 ==

== ENCOUNTER 2024-05-20 14:13 | Observation (INO) | payer MEDICAID ==
[2024-05-24] MEDS ORDERED: METF-771 PO (15:02)
[2024-05-24 15:15] LABS: Basophils # (auto) 0 10 ^3/uL (0-0.2); Basophils % (auto) 0.3 % (0.0-2.0); Eosinophils # (auto) 0 10 ^3/uL (0-0.8); Eosinophils % (auto) 0.4 % (0.0-7.0); Hematocrit 35.6 % (36.0-46.0); Hemoglobin 11.6 g/dL (12.2-16.2); Lymphocytes # (auto) 1.7 10 ^3/uL (0.4-5.4); Lymphocytes % (auto) 25.6 % (10.0-50.0); Mean Corpuscular Hemoglobin 26.1 pg (28.0-32.0); Mean Corpuscular Hgb Conc. 32.7 g/dL (32.0-36.0); Mean Corpuscular Volume 79.9 fL (80.0-100.0); Monocytes # (auto) 0.3 10 ^3/uL (0-1.3); Monocytes % (auto) 3.8 % (0.0-12.0); Neutrophils # (auto) 4.7 10 ^3/uL (1.6-8.6); Neutrophils % (auto) 69.9 % (37.0-80.0); Nucleated Red Blood Cells % 0.1 %; Platelet Count (auto) 296 10^3/uL (140-450); Red Blood Cells 4.46 10^6/uL (4.0-5.20); Red Cell Distribution Width 14.6 % (11.8-14.3); White Blood Cell 6.8 10^3/uL (4.4-10.8)
[2024-05-27 04:06] LABS: RPR Non Reactive (Non Reactive)
== END 2024-05-24 15:16 | disposition home or self-care (01) ==
LOC: LDRP 05-24 12:47
PROVIDERS: ADMIT Obstetrics & Gynecology; ATTEND Obstetrics & Gynecology
DX: O24.419 Gestational diabetes mellitus in pregnancy, unspecified control (principal); Z3A.36 36 weeks gestation of pregnancy; Z88.5 Allergy status to narcotic agent; Z87.891 Personal history of nicotine dependence
CPT/HCPCS: 36415; 59025; 76818; 81002; 82948; 82962; 83036; 85025; 86592; 87070; 94760; G0378

== ENCOUNTER → 2024-05-27 | Outpatient (CLI) | payer MEDICAID ==
[~2024-05-27] MED LIST changes: +METF-771 PO
[2024-05-27 12:30] LABS: Basophils # (auto) 0 10 ^3/uL (0-0.2); Eosinophils # (auto) 0 10 ^3/uL (0-0.8); Monocytes # (auto) 0.5 10 ^3/uL (0-1.3); Monocytes % (auto) 6.7 % (0.0-12.0); Neutrophils # (auto) 4.7 10 ^3/uL (1.6-8.6); Red Blood Cells 4.34 10^6/uL (4.0-5.20)
[2024-05-27 12:32] LABS: Basophils % (auto) 0.4 % (0.0-2.0); Eosinophils % (auto) 0.5 % (0.0-7.0); Hematocrit 34.6 % (36.0-46.0); Hemoglobin 11.4 g/dL (12.2-16.2); Lymphocytes # (auto) 2.2 10 ^3/uL (0.4-5.4); Lymphocytes % (auto) 28.9 % (10.0-50.0); Mean Corpuscular Hemoglobin 26.3 pg (28.0-32.0); Mean Corpuscular Volume 79.8 fL (80.0-100.0); Neutrophils % (auto) 63.5 % (37.0-80.0); Platelet Count (auto) 297 10^3/uL (140-450); Red Cell Distribution Width 14.5 % (11.8-14.3); White Blood Cell 7.5 10^3/uL (4.4-10.8)
[2024-05-28 06:07] LABS: RPR Non Reactive (Non Reactive)
[2024-05-28 22:07] LABS: Chlamydia Trachomatis, NAA Negative (Negative); Neisseria gonorrhoeae, NAA Negative (Negative)
== END | disposition home or self-care (01) ==
LOC: LAB 11:24
PROVIDERS: ATTEND Obstetrics & Gynecology
DX: Z34.80 Encounter for supervision of other normal pregnancy, unspecified trimester (principal)
CPT/HCPCS: 36415; 85025; 86592

== ENCOUNTER 2024-05-28 14:09 | Observation (INO) | payer MEDICAID ==
--- NOTE | 2024-05-28 19:28 | DVH ---
Procedure: US BIOPHYSICAL PROFILE 05/28/2024 06:53 PM Indication:GDMA2. Comparison: US BIOPHYSICAL PROFILE on DOS: 05/24/24, US BIOPHYSICAL PROFILE on DOS: 05/16/24, US BIOPH YSICAL PROFILE on DOS: 05/13/24 Technique: Sonogram of gravid uterus utilizing grayscale and color techniques. FINDINGS: Single living intrauterine gestation. Presentation: Cephalic Placenta: Posterior, no previa or abruption heart rate: 140 bpm SARAI: 13.2 cm, DVP: 5 cm Maternal cervix: Not visualized Biophysical Profile: breathing score: 2 movement score: 2 tone: 2 Quantitative SARAI score: 2 Total score: 8/8 IMPRESSION: 1. Single living as above. 2. Biophysical profile score: 8/8.
--- NOTE | 2024-05-28 20:39 | DVHDS2 ---
Physician Discharge Progress N Final Diagnosis: testing for GDM, A2 Operations or Procedures: Operations or Procedures 28yo IUP@37.3wks, +FM, +BH, denies UCs/LOF/VB. Pt reports loosing mucus plug today, wants to have her cervix checked. VSS UA wnl NST reactive BPP wnl SVE by RN: 1.5/thick/high FKC/Labor precautions given. Condition on Discharge: Stable Disposition: Home Discharge Instructions: Diet: Consistent carbohydrate Activity: No Restrictions, As Tolerated Medications: see med list Follow Up Care: Specialist: f/u in 3 days Discharge Statement: "Patient was advised to return to the ER or call 911 if any headaches, dizziness, shortness of breath, chest pain, abdominal pain, bleeding, fevers, or worsening of medical condition. Patient was counseled about treatment plan, medications, possible side effects, patientverbalized understanding. All questions were answered to the best of my ability. This discharge took greater then 30 minutes in planning, reviewing documentation, counseling the patient, and discussing with other team members." JYOTI RAMOS CNM May 28, 2024 20:38
== END 2024-05-28 20:12 | disposition home or self-care (01) ==
LOC: LDRP 18:44
PROVIDERS: ADMIT Obstetrics & Gynecology; ATTEND Obstetrics & Gynecology
DX: O24.419 Gestational diabetes mellitus in pregnancy, unspecified control (principal); Z3A.37 37 weeks gestation of pregnancy; Z98.890 Other specified postprocedural states
CPT/HCPCS: 59025; 76818; 81002; 82948; 82962; 94760; G0378

== ENCOUNTER 2024-05-30 12:57 | Observation (INO) | payer MEDICAID ==
--- NOTE | 2024-05-30 19:41 | DVH ---
BIOPHYSICAL PROFILE HISTORY: GDMA2 TECHNIQUE: Multiple transabdominal real-time grayscale sonographic images through the gravid uterus of the fetus with duplex Doppler color flow and M-mode spectral analysis FINDINGS: BIOPHYSICAL PROFILE: breathing score: 2 movement score: 2 tone score: 2 Quantitative SARAI score: 2 (SARAI: 10.22 Cm.) Total score: 8/8 Single live fetus in cephalic presentation. heart rate 163 beats per minute. Grade 3 placenta without previa or abruption and appears closed. Single live fetus at 37 weeks 5 days Biophysical profile score 8/8 corresponding to an EMANI of 06/15/2024 IMPRESSION: 1. Biophysical profile score: 8/8 2. Nuchal cord 3. FHR: 163
--- NOTE | 2024-05-30 22:33 | DVHDS2 ---
Physician Discharge Progress N Final Diagnosis: GDMA2 nuchal cord Operations or Procedures: Operations or Procedures NST/BPP/SARAI Accucheck Commentary: Commentary status reassuring Condition on Discharge: Stable Disposition: Home Discharge Instructions: Diet: Consistent carbohydrate Activity: No Restrictions, As Tolerated Follow Up/Referral: as scheduled Medications: PLEASE CONTINUE TAKING ALL MEDICAGTIONS PRESCRIBED Follow Up Care: Discharge Statement: "Patient was advised to return to the ER or call 911 if any headaches, dizziness, shortness of breath, chest pain, abdominal pain, bleeding, fevers, or worsening of medical condition. Patient was counseled about treatment plan, medications, possible side effects, patientverbalized understanding. All questions were answered to the best of my ability. This discharge took greater then 30 minutes in planning, reviewing documentation, counseling the patient, and discussing with other team members." SUSANA COOK DO May 30, 2024 22:33
== END 2024-05-30 20:45 | disposition home or self-care (01) ==
LOC: LDRP 18:45
PROVIDERS: ADMIT Obstetrics & Gynecology; ATTEND Obstetrics & Gynecology
DX: O24.429 Gestational diabetes mellitus in childbirth, unspecified control (principal); O69.81X0 Labor and delivery complicated by cord around neck, without compression, not applicable or unspecified; Z3A.37 37 weeks gestation of pregnancy; Z88.5 Allergy status to narcotic agent; Z87.891 Personal history of nicotine dependence; Z79.899 Other long term (current) drug therapy
CPT/HCPCS: 59025; 76818; 81002; 82948; 82962; G0378

== ENCOUNTER 2024-06-01 17:46 | Observation (INO) | payer MEDICAID ==
[~2024-06-01] VITALS: Ht 160 cm; Wt 115.2 kg
[2024-06-01] MEDS ORDERED: LACTATED RINGER'S 1,000 ML IV SCH (19:00)
[2024-06-01] MEDS ORDERED: ONDANSETRON HCL 4 MG/2 ML VIAL IV PRN (19:00)
[2024-06-01] MEDS ORDERED: LACTATED RINGER'S 1,000 ML IV ONE (19:00)
--- NOTE | 2024-06-01 19:41 | DVHDS2 ---
Physician Discharge Progress N Final Diagnosis: IUP at 38weeks GDMA2 UTI Other Interventions Other Interventions Ms Srivastava presents to Place with report of back pain and nausea. Re ports normal movements, no PAULSON, vision changes or epigastric pain Stated that BS was 23, but she rechecked and got 103mg/dL. Hence she decides to come in for evaluation. No fever or chills O: A&Ox3 Afebrile VSS Respiration unlabored Abdomen: Gravid, non-tender Right CVA tenderness SVE 1-2/ thick/long/posterior cervix/ high UA by dipstick: + blood and FHR baseline 125 with moderate variability, Accelerations present, no deceleration A: IUP at 38weeks GDMA2 UTI Reactive NST P: IV hydration Ceftriaxone 1G IVPB f/u with oral antibiotics at home Cephalexin 500mg by oral route every 6hrs x 7days Patient later tolerated sandwich w/o nausea or vomiting Discharge home To f/u with OB provider in 1-2days Condition on Discharge: Stable Disposition: Home Discharge Instructions: Diet: See Comment Diet comment: As previously advised for management of GDMA2 Activity: No Restrictions, As Tolerated Medications: Cephalexin Follow Up Care: Discharge Statement: "Patient was advised to return to the ER or call 911 if any headaches, dizziness, shortness of breath, chest pain, abdominal pain, bleeding, fevers, or worsening of medical condition. Patient was counseled about treatment plan, medications, possible side effects, patientverbalized understanding. All questions were answered to the best of my ability. This discharge took greater then 30 minutes in planning, reviewing documentation, counseling the patient, and discussing with other team members." KEYANA CRUMP CNM Jun 01, 2024 19:41
[2024-06-01] MEDS ORDERED: cefTRIAXone SOD 1,000 MG VL IM ONE (19:45)
[2024-06-01] MEDS ORDERED: SODIUM CHLORIDE 0.9% 1,000 ML IV ONE (20:00)
[2024-06-01 20:22] LABS: COVID19 ANTIGEN SOFIA FIA NEGATIVE (NEGATIVE); Rapid Influenza A Negative (Negative); Rapid Influenza B Negative (Negative)
[2024-06-01] MEDS: cefTRIAXone 1GM/50ML D5W 50 ML IV ONE (20:54)
[2024-06-01] MEDS: SODIUM CHLORIDE 0.9% 1,000 ML IV SCH (20:54)
[2024-06-01] MEDS ORDERED: CEPH250C PO (21:55)
== END 2024-06-01 22:07 | disposition home or self-care (01) ==
LOC: LDRP 17:46
PROVIDERS: ADMIT Obstetrics & Gynecology; ATTEND Obstetrics & Gynecology
DX: O23.43 Unspecified infection of urinary tract in pregnancy, third trimester (principal); N39.0 Urinary tract infection, site not specified; O24.419 Gestational diabetes mellitus in pregnancy, unspecified control; O99.891 Other specified diseases and conditions complicating pregnancy; M54.9 Dorsalgia, unspecified; O21.2 Late vomiting of pregnancy; Z3A.38 38 weeks gestation of pregnancy; Z79.899 Other long term (current) drug therapy; Z98.890 Other specified postprocedural states; Z20.822 Contact with and (suspected) exposure to COVID-19
CPT/HCPCS: 36415; 59025; 81002; 82948; 82962; 87426; 87804; 94760; 96365; G0378; J0696; J7030; 96360; 96361

== ENCOUNTER 2024-06-03 20:27 | Inpatient (IN) | payer MEDICAID ==
[~2024-06-03] VITALS: Ht 160 cm; Wt 121.1 kg
[~2024-06-03 20:27] MED LIST changes: +CEPH250C PO
[2024-06-13] MEDS ORDERED: LIDOCAINE 2%HCL (LOCAL ANESTH.) INJ 20ML MDV IJ PRN (21:15)
[2024-06-13] MEDS ORDERED: METHYLERGONOVINE MALEATE 0.2 MG/ML AMP IM PRN (21:15)
[2024-06-13] MEDS ORDERED: CARBOPROST TROMETHAMINE 250 MCG/1ML VIAL IM PRN (21:15)
[2024-06-13] MEDS ORDERED: NALBUPHINE HCL 10 MG/1ml INJECTION IV PRN (21:15)
[2024-06-13] MEDS ORDERED: ACCU-CHEK COMFORT CURVE STRIP VI SCH (22:00)
[2024-06-13] MEDS ORDERED: DIPHENOXYLATE W/ATROPINE 2.5 MG TAB PO SCH (22:00)
[2024-06-13 22:13] LABS: Basophils # (auto) 0 10 ^3/uL (0-0.2); Basophils % (auto) 0.3 % (0.0-2.0); Eosinophils # (auto) 0.1 10 ^3/uL (0-0.8); Eosinophils % (auto) 1.1 % (0.0-7.0); Hemoglobin 10.7 g/dL (12.2-16.2); Lymphocytes # (auto) 2.2 10 ^3/uL (0.4-5.4); Lymphocytes % (auto) 24.8 % (10.0-50.0); Mean Corpuscular Hemoglobin 26.2 pg (28.0-32.0); Mean Corpuscular Hgb Conc. 33.5 g/dL (32.0-36.0); Mean Corpuscular Volume 78.2 fL (80.0-100.0); Monocytes # (auto) 0.6 10 ^3/uL (0-1.3); Monocytes % (auto) 6.8 % (0.0-12.0); Platelet Count (auto) 300 10^3/uL (140-450); Red Blood Cells 4.09 10^6/uL (4.0-5.20); Red Cell Distribution Width 14.7 % (11.8-14.3); White Blood Cell 8.9 10^3/uL (4.4-10.8)
[2024-06-13 22:32] LABS: Albumin 3.5 g/dL (3.2-4.8); Alkaline Phosphatase 244 U/L (46-116); Anion Gap 9 (5-15); Aspartate Aminotransferase 9 U/L (13-40); Blood Urea Nitrogen 9 mg/dL (9-23); Calcium 9.6 mg/dL (8.7-10.4); Carbon Dioxide 22 mmol/L (20-31); Chloride 109 mmol/L (98-107); Glucose 98 mg/dL (74-106); Potassium 3.5 mmol/L (3.5-5.1); Sodium 140 mmol/L (136-145)
[2024-06-13 22:33] LABS: Bilirubin, Total 0.7 mg/dL (0.2-1.0)
[2024-06-13 22:34] LABS: Alanine Aminotransferase < 9 U/L (7-40)
[2024-06-13 22:35] LABS: Urine Bacteria FEW /hpf (None Seen); Urine Blood 3+ /uL (Negative); Urine Clarity Turbid (Clear); Urine Color Yellow (Yellow); Urine Mucus FEW (None Seen); Urine Protein, UAD 1+ (Negative); Urine Specific Gravity 1.029 (1.001-1.035); Urine Urobilinogen Normal (Negative); Urine WBC 10 /hpf (0 - 5); Urine pH 5.5 (5.0-9.0)
[2024-06-13 22:39] LABS: INR 0.97 (0.9-1.15); Partial Thromboplastin Time 25.1 SEC (24.5-34.5); Prothrombin Time 10.3 sec (9.3-11.8)
[2024-06-13 22:46] LABS: Amphetamine Screen, Urine Neg (NEGATIVE); Barbiturate Scree,Urine Neg (NEGATIVE); Benzodiazephine Screen, Urine Neg (NEGATIVE); Cocaine Screen, Urine Neg (NEGATIVE); Opiate Scree,Urine Neg (NEGATIVE)
[2024-06-13 22:47] LABS: Cannabinoid Screen, Urine Neg (NEGATIVE); Phencyclidine Screen, Urine Neg (NEGATIVE)
--- NOTE | 2024-06-13 23:42 | DVH ---
LIMITED OB ULTRASOUND > 14 WKS: HISTORY: GDMA2 TECHNIQUE: Multiple real-time grayscale images of the gravid uterus with duplex Doppler color flow an d M-mode spectral analysis. TRANSDUCER: C1-9 COMPARISON: US OB ULTRASOUND COMP GTR 14 WKS on DOS: 12/23/23, US OB ULTRASOUND COMP LESS 14WKS on DOS: 10/18/23, OBSTERICAL LIMITED on DOS: 04/14/19 FINDINGS: IUP single live fetus at 38 weeks, 3 days based on composite averages of the BPD, head circumference, abdominal circumference and femur length Estimated weight 3335 grams heart rate 152 beats per minute SARAI 12.6 cm Cervix closed Cephalic Presentation Placenta without previa or abruption. IMPRESSION: 1. IUP single live fetus at 38 weeks, 3 days AUA corresponding to an EMANI of June 24, 2024 2. No acute findings identified.
[2024-06-14] MEDS: LACTATED RINGER'S 1,000 ML IV SCH
[2024-06-14] MEDS: PHISODERM TOP SOLN 240ML BTL TOP PRN
[2024-06-14] MEDS: DERMOPLAST 60ML BOTTLE TOP PRN
[2024-06-14] MEDS: WITCH HAZEL-GLYCERIN PAD TOP PRN
[2024-06-14] MEDS: miSOPROStol 50 MCG per PRE-CUT 1/2 TAB PO PRN (00:37)
[2024-06-14 01:32] LABS: Rapid Influenza A Negative (Negative); Rapid Influenza B Negative (Negative)
[2024-06-14 01:33] LABS: COVID19 ANTIGEN SOFIA FIA NEGATIVE (NEGATIVE)
[2024-06-14] MEDS: THROAT LOZENGES(CEPASTAT) MT PRN (02:46)
[2024-06-14] MEDS ORDERED: ROPIVACAINE HCL 200 ML ONE (03:57)
[2024-06-14] MEDS ORDERED: NALOXONE HCL 0.4 MG/ML VIAL IV ONE (04:00)
[2024-06-14] MEDS: LACT. RINGERS/OXYTOCIN 20UNITS 1,000 ML IV SCH (05:07)
[2024-06-14] MEDS ORDERED: ROPIVACAINE HCL 400mg/200ml BAG (2mg/ml) EPI ONE (06:21)
[2024-06-14] MEDS: ROPIVACAINE HCL 200 ML EPI ONE (06:26)
[2024-06-14] MEDS: ONDANSETRON HCL 4 MG/2 ML VIAL IV PRN (06:36)
--- NOTE | 2024-06-14 06:50 | DVHHP2 ---
OB CC & HPI Date Date of Admission: Jun 14, 2024 Patient Identification: : 5 Para: 4 EDC: Jun 22, 2024 EGA: 38.6 Chief Complaints: Reason for admission: active labor History of Present Complaints 28y EDC 06/22/24 dated by 6w2d US. EGA 38.6 wk Good PNL care since trim w/ Dr. Farmer and followed by MFM Dr. Fisher for GDM and morbid maternal obesity BS have been suboptimally controlled and was schduled by Dr. Farmer for induction of labor today. Denies PROM or VB. Reports good FM. EFW 7lbs3 oz by US on admission. Past Medical History Cardiac: No pertinent Hx Pulmonary: No pertinent Hx Central Nervous System: No pertinent Hx GI: No pertinent Hx Hemotology/Oncology: No pertinent Hx Hepatobiliary: No pertinent Hx Psychiatric: No pertinent Hx Musculoskeletal: No pertinent Hx Rheumotologic: No pertinent Hx Infectious Disease: No peritnent Hx ENT: No pertinent Hx Renal/: No pertinent Hx Endocrine: No pertinent Hx Dermatology: No pertinent Hx Past Surgical History: No pertinent Hx OB History OB History Care: Good Care Ultrasounds: Normal mid trimester US Obstetrical Complications: Gestational Diabetes Allergies: Coded Allergies: Vancomycin (Verified Allergy, Mild, GENERALIZED PRURITUS, 12/15/20) Home Meds Active Scripts Cyclobenzaprine Hcl (Cyclobenzaprine Hcl) 5 Mg Tab, 1 TAB PO TID PRN, #30 TAB Prov:SINDY ZAMORANO 03/19/22 Reported Medications Cephalexin (KEFLEX CAPSULE) 250 Mg Cp, 500 MG PO QID for 7 Days 06/01/24 Metformin Hydrochloride (Metformin HCl ER) 500 Mg Tab, 500 MG PO, TAB 05/24/24 Beclomethasone Dipropionate (Qvar Redihaler) 40 Mcg/Act Aer, 40 MCG IN for ASTHMA, AER 12/15/20 Albuterol Sulfate (Albuterol Sulfate) 2 Mg Tab, 90 MG PO Q6HP PRN for ASTHMA, MG 12/15/20 Ferrous Sulfate (Iron) 325 Mg Tab, 325 MG PO for ANEMIA, TAB 12/15/20 Vit W/ Fe Carbonyl-Fe (Pnv-Total) Cap, 1 TAB PO DAILY for SUPPLEMENT, CAP 02/25/14 Current Medications Current Medications Medications (Trade) Dose Ordered Sig/Helen Route PRN Reason Start Time Stop Time Status Last Admin Lactated Ringer's 1,000 ml @ 125 mls/hr Q8H IV 06/13/24 21:15 06/14/24 05:08 Nalbuphine HCl (Nubain) 10 mg Q4HP PRN IV MODERATE PAIN (4-6 PAIN SCALE) 06/13/24 21:15 Diagnostic Test (Pha) (Accu-Chek Comfort Curve T) 1 strip Q4HPRN 06/13/24 22:00 Ptarick Pirce (Tucks) 1 pad PRN PRN TOP PERINEAL AREA DISCOMFORT 06/13/24 21:15 06/14/24 00:00 Sodium Lauryl Sulfate (Phisoderm) 240 ml PRN PRN TOP PERINEAL AREA DISCOMFORT 06/13/24 21:15 06/14/24 00:00 Benzocaine (Dermoplast) 1 applic PRN PRN TOP PERINEAL AREA DISCOMFORT 06/13/24 21:15 06/14/24 00:00 Misoprostol (Cytotec) 50 mcg Q4HPRN PRN PO CERVICAL RIPENING 06/13/24 21:15 06/14/24 00:37 Lidocaine HCl (Xylocaine) 20 ml ONCE PRN IJ PERINEAL AREA DISCOMFORT 06/13/24 21:15 Ondansetron HCl (Zofran) 4 mg Q4HP PRN IV NAUSEA / VOMITING 06/13/24 21:15 Carboprost Tromethamine (Hemabate) 250 mcg Q20M PRN IM POST HEMORRHAGE 06/13/24 21:15 06/13/24 21:56 DC Methylergonovine Maleate (Methergine) 0.2 mg Q8HP PRN IM POST HEMORRHAGE 06/13/24 21:15 06/15/24 21:14 Diphenoxylate HCl/ Atropine (Lomotil Tablet) 10 mg Q12HR PO 06/13/24 22:00 Throat Lozenges (Cepastat Lozenges) 1 anjel Q2HP PRN MT FOR SORE THROAT 06/13/24 23:15 06/14/24 05:42 Oxytocin 1,000 ml @ 6 ml/hr Q24H IV 06/14/24 04:15 06/14/24 05:07 Family & Social History Family/Social History Blood Type: B+ Rubella: immune RPR/VDRL: Negative GBS Status: Negative HBsAG: Negative Review of Systems Constitutional: No symptom reported Ears, Nose, & Throat: No symptom reported Eyes: No symptom reported Pulmonary/Respiratory: No symptom reported Cardiovascular: No symptom reported Gastrointestinal: No symptom reported Genitourinary: No symptom reported Musculoskeletal: No symptom reported Skin: No symptom reported Psychiatric: No symptom reported Endocrine: No symptom reported Hemotologic/Lymphatic: No symptom reported OB Admission Exam Physical Exam HEENT: TMs Normal, Fontanelles Normal, Nasal Mucosa Normal, Eyes non-injected, Oropharynx Normal, PERRLA, Moist Membranes, EOMI Heart: Rhythm Normal Lungs: Clear Abdomen: Non tender Extremities: Normal Reflexes: Normal Cervical Dilatation: 4cm Effacement: Other (80) Station: -3 Membranes: Intact Heart Rate: 130's Accelerations: Accelerations Present Decelerations: No Decelerations Short Term Variability: Present Unstacker Variability: Average (6-25) Contractions on Admission: 6-10 Minutes Apart Intensity: Mild OB Plan Plan Admitting Diagnosis: Induction of labor, GDM Morbid obesity GBS neg Plan: Induction Induction Methd: Misoprostol protocol Other Plan: Pitocin augmentation Admit for labor and delivery Informed consent obtained. Care endorsed to oncoming cool roofing installer attending, SUSANA Lew DO Jun 14, 2024 06:50
[2024-06-14] MEDS: ePHEDrine SULFATE 50 MG/ML AMP IV ONE (09:14)
[2024-06-14] MEDS: LACT. RINGERS/OXYTOCIN 20UNITS 500 ML IV ONE ×2 (10:13→10:45)
--- NOTE | 2024-06-14 10:24 | LDN2 ---
Labor and Delivery Note Date 06/14/24 Age [age] Para 4 AB 0 EDC 06/22/2024 EGA 38 6/7 Diagnosis GDM Labor Vaginal Delivery: VTX Vacuum Assisted: No Placenta: Spontaneous Sex: Male Weight pnd Apgars pnd Nuchal Cord Transected: Yes (loose) Anesthesia Epidural Episiotomy: No Extension: Yes (1st degree anterior Vag 0.5cm) Repaired with 2-0 Chromic EBL 300cc Labs Laboratory Tests 11/28/23 10:29: Hepatitis B Surface Antigen Negative, HIV (1&2) Antibody Negative, Rubella Antibody Positive Blood Bank 06/13/24 21:57: Blood Type B POSITIVE Complications none Conditions stable Frame Operator none present SHASHANK CAIN DO Jun 14, 2024 10:24
[2024-06-14] MEDS ORDERED: ACETAMINOPHEN 325 MG TAB PO PRN (10:45)
[2024-06-14] MEDS ORDERED: IBUPROFEN 600 MG TAB PO ONE (12:04)
[2024-06-14] MEDS: IBUPROFEN 600 MG TAB PO PRN (12:06)
[2024-06-14 14:44] VITALS: BP 106/55; PULSE 91; TEMP 97.7; O2SAT 95
[2024-06-14 19:00] VITALS: BP 104/61; PULSE 90; RESP 20; TEMP 97.1; O2SAT 97
[2024-06-14] MEDS: DOCUSATE SOD 100 MG CAP PO SCH (21:34)
[2024-06-14 23:00] VITALS: BP 105/55; PULSE 71; RESP 18; TEMP 97.6; O2SAT 96
[2024-06-15 03:00] VITALS: BP 126/88; PULSE 88; RESP 16; TEMP 97.9; O2SAT 97
[2024-06-15 07:00] VITALS: BP 108/58; PULSE 81; RESP 18; TEMP 97.6; O2SAT 98
--- NOTE | 2024-06-15 09:10 | DVHDS2 ---
Obstetrics Discharge Summary Obstetrics Discharge Summary Date of Admission: Jun 14, 2024 Date of Discharge: Jun 15, 2024 Reason For Admission: Induction of Labor Procedures: NST, Ultrasound Intrapartum Procedures: Spontaneous vaginal deliv Procedures: None Operative Complicat: None Discharge Diagnosis: Term -Delivered Discharge Information: Activity (Pelvic rest 6 weeks), Diet (GDM diet), Medications (None), Instructions ( hemorrhage precautions fever precautions), Discharge to (Home), Discarge date (June 15, 2024) SHASHANK CAIN DO Jun 15, 2024 09:10
[2024-06-15 11:00] VITALS: BP 125/57; PULSE 80; RESP 20; TEMP 97.5; O2SAT 97
== END 2024-06-15 12:13 | disposition home or self-care (01) | DRG 560 ==
LOC: LDRP 06-13 20:53
PROVIDERS: ADMIT Obstetrics & Gynecology; ATTEND Obstetrics & Gynecology
PROC: 10E0XZZ Delivery of Products of Conception, External Approach (ICD-10-PCS; principal; 2024-06-14)
PROC: 3E0DXGC Introduction of Other Therapeutic Substance into Mouth and Pharynx, External Approach (ICD-10-PCS; 2024-06-14)
PROC: 0HQ9XZZ Repair Perineum Skin, External Approach (ICD-10-PCS; 2024-06-14)
PROC: 3E0R3BZ Introduction of Anesthetic Agent into Spinal Canal, Percutaneous Approach (ICD-10-PCS; 2024-06-14)
PROC: 00HU33Z Insertion of Infusion Device into Spinal Canal, Percutaneous Approach (ICD-10-PCS; 2024-06-14)
DX: O69.81X0 Labor and delivery complicated by cord around neck, without compression, not applicable or unspecified (principal); Z37.0 Single live birth; O24.415 Gestational diabetes mellitus in pregnancy, controlled by oral hypoglycemic drugs; E66.01 Morbid (severe) obesity due to excess calories; O70.0 First degree perineal laceration during delivery; O99.214 Obesity complicating childbirth; Z3A.38 38 weeks gestation of pregnancy; Z88.1 Allergy status to other antibiotic agents
CPT/HCPCS: 36415; 59025; 59409; 62282; 76805; 80053; 80307; 81001; 81002; 82948; 82962; 85025; 85610; 85730; 86592; 86780; 86850; 86900; 86901; 87426; 87804; 94760; 94762; 96360; 96361; 96365; 96366; 96375; G0378; J2405; J2590

== ENCOUNTER 2025-04-10 06:08 | Day surgery (SDC) | payer MEDICAID ==
[2025-04-09 15:34] LABS: Hematocrit 40.2 % (36.0-46.0); Hemoglobin 13.7 g/dL (12.2-16.2); Mean Corpuscular Hemoglobin 26.5 pg (28.0-32.0); Mean Corpuscular Volume 78.0 fL (80.0-100.0); Nucleated Red Blood Cells % 0.0 %
[2025-04-09 15:47] LABS: Urine Budding Yeast OCCASIONAL /hpf (None Seen); Urine Protein, UAD TRACE (Negative)
[2025-04-09 15:48] LABS: INR 0.98 (0.9-1.15); Partial Thromboplastin Time 26.5 SEC (24.5-34.5); Prothrombin Time 10.4 sec (9.3-11.8)
[2025-04-09 17:00] LABS: Alanine Aminotransferase 22 U/L (7-40); Albumin 4.1 g/dL (3.2-4.8); Alkaline Phosphatase 57 U/L (46-116); Anion Gap 11 (5-15); BUN/Creatinine Ratio 12.2 (10.0-20.0); Blood Urea Nitrogen 10 mg/dL (9-23); Calcium 8.8 mg/dL (8.7-10.4); Carbon Dioxide 24 mmol/L (20-31); Glucose 78 mg/dL (74-106); Potassium 3.8 mmol/L (3.5-5.1); Sodium 143 mmol/L (136-145); Total Protein 6.3 g/dL (5.7-8.2)
[2025-04-09 17:01] LABS: Bilirubin, Total 0.9 mg/dL (0.2-1.0)
[2025-04-09 17:07] LABS: Chloride 108 mmol/L (98-107)
[~2025-04-10] VITALS: Ht 160 cm; Wt 115.7 kg
[~2025-04-10 06:08] MED LIST changes: -ALBU2TAB11 PO; -BECL40AE11 IN; -CEPH250C PO; -CYCL-837 PO; -FERR-7 PO; +IBU600T PO; -METF-771 PO; -PRENCAP61 PO; +TIRZ15IN2 SC
[2025-04-10] MEDS ORDERED: LIDOCAINE HCL 2% TOP JELLY 5ML TOP ONE (07:02)
[2025-04-10] MEDS: GABAPENTIN 300 MG CAP PO ONE (07:05)
[2025-04-10] MEDS: ACETAMINOPHEN IV 1000 MG/100ML (10MG/ML) IV ONE (07:05)
[2025-04-10] MEDS: CELECOXIB 100 MG CAP PO ONE (07:05)
[2025-04-10] MEDS ORDERED: LIDOCAINE 2% (LOCAL ANESTH.) PF 5ml SDV ONE ×2 (07:06→08:49)
[2025-04-10] MEDS ORDERED: ONDANSETRON HCL 4 MG/2 ML VIAL ONE (07:06)
[2025-04-10] MEDS ORDERED: SUGAMMADEX 200mg/2ml Vial (100MG/ML) IV ONE (07:06)
[2025-04-10] MEDS ORDERED: KETOROLAC TROMETH 30 MG/ML 1ML VIAL ONE (07:06)
[2025-04-10] MEDS ORDERED: PROPOFOL 10 MG/ML 20 ML IV ONE (07:07)
[2025-04-10] MEDS ORDERED: GLYCOPYRROLATE 0.2 MG/ML 1ML VIAL ONE (07:07)
[2025-04-10] MEDS ORDERED: ROCURONIUM 10MG/ML 10ML VIAL IV ONE (07:07)
[2025-04-10] MEDS ORDERED: fentaNYL CITRATE 100 MCG/2 ML VL ONE (07:18)
[2025-04-10] MEDS: ceFAZolin 2 GM/D5W50ml 50 ML IV ONE (08:06)
[2025-04-10] MEDS ORDERED: HYDR-4902 PO (08:20)
[2025-04-10] MEDS: LIDOCAINE W/ EPINEPHRINE 1% 20ML VIAL ONE (08:29)
[2025-04-10 09:16] VITALS: PULSE 73; RESP 20; TEMP 97.4; O2SAT 96
[2025-04-10 09:26] VITALS: PULSE 69; RESP 16; O2SAT 100
--- NOTE | 2025-04-10 09:32 | DVHOP2 ---
Operative Report - 2 Report Details Date: 04/10/25 Preop Diagnosis: Multiparity, desires voluntary female sterilization Postop Diagnosis: Same Surgeon: Kenney Cook DO Anesthesiologist: Lashay guillen Anesthesia: General Consent: The patient was informed of the risks and benefits of the procedure. These include but are not limited to complications of anesthesia, postoperative infection, incomplete relief of symptoms, recurrence of symptoms, damage to blood vessels, nerves and tendons, deep venous thrombosis, pulmonary embolism and possible need for repeat surgery in the future. Understands sterilization is permanent, not reversible, has 1% failure rate, and may increase chance of ectopic . Complications: None Estimated Blood Loss: 15 mL Findings: Normal Tubes/ovaries x 2 Enlarged uterus 10-12 wk size, no fibroids Uterine cavity sounds to 9cm Normal abdomen/pelvis Name of Procedure Performed Laparoscopic bilateral salpingectomy Procedure Details Procedure Details: See dicatation Specimen: Left and right fallopian tubes Condition Stable Disposition Home Visit Coding OBGYN Date of Service: Apr 10, 2025 Billing Provider: KENNEY COOK DO [employer] Common Visit Codes: PROCEDURE ONLY [employer] Procedure Codes: 76665-LXE.[id number]:W/REM ADNEXAL STRUCT ((sterilization )) KENNEY COOK DO Apr 10, 2025 09:32
[2025-04-10] MEDS: HYDROmorphone HCL 2 MG/ML VL/or syr ONE (09:44)
[2025-04-10] MEDS: ONDANSETRON HCL 4 MG/2 ML VIAL ONE (09:44)
[2025-04-10] MEDS ORDERED: fentaNYL CITRATE 100 MCG/2 ML VL IV PRN (09:45)
[2025-04-10] MEDS ORDERED: NALOXONE HCL 0.4 MG/ML VIAL IV PRN (09:45)
[2025-04-10] MEDS ORDERED: FLUMAZENIL 0.1 MG/ML INJ 10ML MDV IV PRN (09:45)
[2025-04-10] MEDS ORDERED: hydrALAZINE HCL 20 MG/ML VL IV PRN (09:45)
[2025-04-10] MEDS: ONDANSETRON HCL 4 MG/2 ML VIAL IV PRN (09:46)
[2025-04-10] MEDS: HYDROmorphone HCL 2 MG/ML VL/or syr IV PRN (09:48)
[2025-04-10 10:46] VITALS: BP 102/50; PULSE 62; RESP 18; O2SAT 99
--- NOTE | 2025-04-10 11:04 | DVHOP ---
DATE OF SURGERY: 04/10/2025 PREOPERATIVE DIAGNOSES: Multiparity, desires voluntary female sterilization. FINAL DIAGNOSES: Multiparity, desires voluntary female sterilization. SURGEON: Kenney Mullins DO. LITIGATION SUPPORT ANALYST: Lashay Mendoza. TYPE OF ANESTHESIA: General. ANESTHESIOLOGIST: Mr. Román Christianson CRNA DESCRIPTION OF FINDINGS: Normal uterus. Normal ovaries. Normal bilateral fallopian tubes, which were completely resected bilaterally. Survey of the abdomen and pelvis revealed normal anatomy and normal findings. TECHNICAL PROCEDURE: After informed consent was obtained, the patient was taken to the operating room where she underwent smooth induction with general anesthesia. The patient was placed in the dorsal lithotomy position in Jesse stirrups. The vagina, perineum, and abdomen were thoroughly prepped and the patient was sterilely draped in usual fashion. A pelvic exam was then performed under anesthesia. The uterus was found to be 10-week size, anteverted, and mobile. A ring forceps was placed at the anterior lip of the cervix. The uterine cavity sounded to 9 cm. A HUMI uterine manipulator was placed transcervically and the balloon inflated. All instrumentation was then removed from the patient's vagina. Attention was then placed to the patient's abdomen. The base of the umbilicus was tented with a Leidy clamp and a 5 mm incision was made at the base of the umbilicus. The Veress needle was introduced through this incision; however, there was blood noted in the needle before aspiration. The Veress needle was therefore withdrawn. Instead, a direct entry approach was used, using a 5 mm Optiview trocar. Entry into the peritoneal cavity was performed visualizing all layers of the abdominal wall. Intraperitoneal placement was achieved without any complications and correct placement confirmed directly with the laparoscope. Pneumoperitoneum was achieved using CO2 gas.. Survey of the abdomen and pelvis revealed the above-noted findings. There were no injuries noted to the bowel or vessels. An 8 mm trocar was placed to the left of midline under direct visualization and a 5 mm trocar was placed to the patient's right under direct visualization. The executive sales assistant manipulated the uterus from below. The uterus was anteverted. The left and right fallopian tubes were found and traced to their fimbriated ends. The right fallopian tube was grasped at the fimbriated end with atraumatic graspers. Using the LigaSure device, the fallopian tube was dissected across the mesosalpinx. Excellent hemostasis was obtained. Proximally, the fallopian tube was desiccated and transected at its connection to the uterus. The fallopian tube was retrieved through the 8 mm port and the specimen was submitted to Pathology. The exact same procedure was performed on the contralateral fallopian tube. There was no bleeding from the mesosalpinx bilaterally. The intraabdominal pressure was dropped. The uterus and the mesosalpinx were again evaluated. There was no bleeding. The patient was taken out of Trendelenburg. The abdomen and bowel were checked once again with no injury or bleeding noted. At this point, the carbon dioxide gas was removed and the trocars removed under direct visualization. The 3 skin incisions were injected with 0.25% Marcaine with epinephrine. Approximately 20 mL in total was used divided across the 3 abdominal incisions. The 3 abdominal incisions were closed in subcuticular fashion using 3-0 Monocryl. A thin layer of Dermabond was then placed over each incision. The transcervical uterine manipulator was removed with no bleeding noted from the cervix. The patient was taken out of lithotomy position, awakened, and taken to the recovery room in stable condition. INTRAOPERATIVE COMPLICATIONS: None. ESTIMATED BLOOD LOSS: Less than 15 mL. POSTOPERATIVE CONDITION: Stable. SPECIMENS: Left and right fallopian tubes. MEDICATIONS: Ancef 2 g IV. DO LUIS A Galdamez/MARC TID: [id number] RECEIPT: [id number] MTD
== END 2025-04-10 11:00 | disposition home or self-care (01) ==
LOC: SUR 06:08
PROVIDERS: ATTEND Obstetrics & Gynecology
DX: Z30.2 Encounter for sterilization (principal); J45.909 Unspecified asthma, uncomplicated; E66.01 Morbid (severe) obesity due to excess calories; Z88.8 Allergy status to other drugs, medicaments and biological substances; Z90.49 Acquired absence of other specified parts of digestive tract; Z68.42 Body mass index [BMI] 45.0-49.9, adult; Z88.1 Allergy status to other antibiotic agents; Z87.891 Personal history of nicotine dependence; Z82.49 Family history of ischemic heart disease and other diseases of the circulatory system
CPT/HCPCS: 36415; 58661; 80053; 81001; 81025; 85025; 85610; 85730; 86850; 86900; 86901; 88305; J0690; J1100; J1171; J1885; J2003; J2405; J2704; J3010; J0131